=== PATIENT | male | born 1965 ===

== ENCOUNTER 2020-11-12 16:08 | Inpatient (IN) | payer OTHER ==
[~2020-11-12] VITALS: Ht 177.8 cm; Wt 114.0 kg
[2020-11-12] MEDS ORDERED: PLEASE ENTER HEIGHT AND WEIGHT MC SCH (16:30)
[2020-11-12] MEDS ORDERED: SODIUM CHLORIDE FLUSH 10ML SYR IVF ONE (16:30)
[2020-11-12] MEDS ORDERED: PLEASE ENTER ALLERGIES MC SCH (16:30)
[2020-11-12] MEDS ORDERED: ONDANSETRON 2MG/ML, 2ML ONE (16:30)
[2020-11-12] MEDS ORDERED: HYDROmorphone 1 MG/ML, 1ML INJ ONE ×2 (16:30→18:12)
[2020-11-12] MEDS ORDERED: SODIUM CHLORIDE 0.9% 1,000ML IVBOLUS ONE (16:30)
[2020-11-12] MEDS ORDERED: ONDANSETRON 2MG/ML, 2ML IVPush ONE (16:30)
[2020-11-12] MEDS: HYDROmorphone 1 MG/ML, 1ML INJ IVPush PRN ×2 (16:31→18:15)
[2020-11-12 16:33] LABS: BASOPHILS % (AUTO) 1 % (0-1); EOSINOPHILS % (AUTO) 0 % (1-7); LYMPHOCYTES % (AUTO) 19 % (22-44); MEAN CORPUSCULAR HEMOGLOBIN 32.8 pg (27.5-34.5); MEAN CORPUSCULAR HGB CONC 34.6 g/dL (33.2-36.2); MONOCYTES % (AUTO) 8 % (2-9); NEUTROPHILS % (AUTO) 72 % (42-75); PLATELET COUNT 215 x10^3/uL (130-400); RED BLOOD COUNT 4.88 x10^6/uL (4.38-5.82); RED CELL DISTRIBUTION WIDTH 12.9 % (9.4-14.8)
[2020-11-12 16:40] LABS: ALANINE AMINOTRANSFERASE 68 U/L (12-78); ALBUMIN 3.8 g/dL (3.4-5.0); ANION GAP 5 mmol/L (5-15); CALCIUM 8.7 mg/dL (8.5-10.1); CHLORIDE 108 mmol/L (98-107); CREATININE 1.01 mg/dL (0.7-1.3)
[2020-11-12 16:42] LABS: ALKALINE PHOSPHATASE 68 U/L (45-117); TOTAL PROTEIN 7.7 g/dL (6.4-8.2)
[2020-11-12] MEDS ORDERED: OMNIPAQUE 350 MG/ML, 100ML BOTTLE ONE (16:57)
--- NOTE | 2020-11-12 17:42 | NUR ---
DR PERDOMO AT BEDSIDE. TEST RESULTS REVIEWED AND QUESTIONS ANSWERED. PLAN FOR ADMIT FOR OVERNIGHT OBS AND PAIN CONTROL DISCUSSED AND QUESTIONS ANSWERED.
[2020-11-12] MEDS ORDERED: morphine SULFATE 10 MG/ML, 1ML IVPush PRN (18:00)
[2020-11-12] MEDS ORDERED: BISACODYL 10 MG SUPP PR PRN (18:00)
[2020-11-12] MEDS ORDERED: DOCUSATE 100 MG CAPSULE PO PRN (18:00)
[2020-11-12] MEDS ORDERED: POLYETHYLENE GLYCOL 17 GM PACKET PO PRN (18:00)
[2020-11-12] MEDS ORDERED: ACETAMINOPHEN 325 MG TABLET PO PRN (18:00)
[2020-11-12] MEDS ORDERED: ONDANSETRON 2MG/ML, 2ML IVPush PRN (18:00)
--- NOTE | 2020-11-12 18:15 | NUR ---
PT MED NOTED FOR PAIN. INSTRUCTED ON USE OF INCENTIVE SPIROMETER WITH EXCELLENT RTN DEMONSTRATION VOLUME = 2000ML. 02 2L NC PLACED 2/2 MEDICATION EFFECT. SPO2 MAINTAINING AT 97%
[2020-11-12] MEDS: SODIUM CHLORIDE 0.9% 1,000 ML IV SCH (19:03)
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
[2020-11-12 19:31] LABS: MICROSCOPIC NOT IND
--- NOTE | 2020-11-12 19:35 | NUR ---
REPORT TO SOULEYMANE PT TO FLOOR WITH TECH
[2020-11-12] MEDS: HYDROcodone/APAP 5/325 TABLET PO PRN (22:08)
[2020-11-13 01:23] VITALS: BP 168/64
[2020-11-13 05:43] LABS: ALBUMIN 3.1 g/dL (3.4-5.0); ANION GAP 4 mmol/L (5-15); BASOPHILS % (AUTO) 0 % (0-1); CALCIUM 7.8 mg/dL (8.5-10.1); CHLORIDE 110 mmol/L (98-107); EOSINOPHILS % (AUTO) 1 % (1-7); LYMPHOCYTES % (AUTO) 21 % (22-44); MEAN CORPUSCULAR HEMOGLOBIN 33.4 pg (27.5-34.5); MEAN CORPUSCULAR HGB CONC 34.7 g/dL (33.2-36.2); MEAN PLATELET VOLUME 8.3 fL (7.4-10.4); MONOCYTES % (AUTO) 11 % (2-9); NEUTROPHILS % (AUTO) 66 % (42-75); PLATELET COUNT 176 x10^3/uL (130-400); RED BLOOD COUNT 4.28 x10^6/uL (4.38-5.82); RED CELL DISTRIBUTION WIDTH 13.2 % (9.4-14.8)
[2020-11-13 06:05] LABS: ALANINE AMINOTRANSFERASE 50 U/L (12-78); ALKALINE PHOSPHATASE 57 U/L (45-117); CREATININE 0.87 mg/dL (0.7-1.3); TOTAL PROTEIN 6.5 g/dL (6.4-8.2)
[2020-11-13] MEDS: HYDROcodone/APAP 5/325 TABLET PO PRN ×4 (06:44→20:19)
[2020-11-13] MEDS: SODIUM CHLORIDE 0.9% 1,000 ML IV SCH (06:44)
[2020-11-13 08:05] VITALS: BP 133/71
[2020-11-13 13:12] VITALS: BP 124/69
[2020-11-13 19:21] VITALS: BP 136/78
[2020-11-14 01:11] VITALS: BP 129/80
[2020-11-14 05:32] LABS: ANION GAP 6 mmol/L (5-15); BASOPHILS % (AUTO) 0 % (0-1); CALCIUM 7.9 mg/dL (8.5-10.1); CHLORIDE 107 mmol/L (98-107); CREATININE 0.86 mg/dL (0.7-1.3); EOSINOPHILS % (AUTO) 2 % (1-7); LYMPHOCYTES % (AUTO) 26 % (22-44); MEAN CORPUSCULAR HEMOGLOBIN 33.2 pg (27.5-34.5); MEAN CORPUSCULAR HGB CONC 34.7 g/dL (33.2-36.2); MEAN PLATELET VOLUME 8.4 fL (7.4-10.4); MONOCYTES % (AUTO) 10 % (2-9); NEUTROPHILS % (AUTO) 62 % (42-75); PLATELET COUNT 170 x10^3/uL (130-400); RED BLOOD COUNT 4.17 x10^6/uL (4.38-5.82); RED CELL DISTRIBUTION WIDTH 12.9 % (9.4-14.8)
[2020-11-14] MEDS: HYDROcodone/APAP 5/325 TABLET PO PRN ×4 (06:24→18:31)
[2020-11-14 07:35] VITALS: BP 126/75
[2020-11-14] MEDS ORDERED: TAMSULOSIN 0.4 MG CAP.ER.24H PO SCH (09:00)
[2020-11-14 12:05] VITALS: BP 123/77
[2020-11-14] MEDS ORDERED: DOCU-131 PO (14:10)
[2020-11-14] MEDS ORDERED: HYDR-2214 PO (14:10)
[2020-11-14] MEDS ORDERED: METH-640 PO (14:24)
[2020-11-14] MEDS ORDERED: METHOCARBAMOL 750 MG TABLET PO PRN (14:30)
== END 2020-11-14 19:09 | disposition home health service (06) | DRG 552 ==
LOC: ED 16:38 → 4NE 19:50 → ED 22:03 → 4NE 22:04 → OBSVTOIN 22:04
PROVIDERS: ADMIT Internal Medicine; ATTEND Hospitalist
DX: S32.019A Unspecified fracture of first lumbar vertebra, initial encounter for closed fracture (principal); S22.31XA Fracture of one rib, right side, initial encounter for closed fracture; S32.9XXA Fracture of unspecified parts of lumbosacral spine and pelvis, initial encounter for closed fracture; M48.02 Spinal stenosis, cervical region; Y93.52 Activity, horseback riding; F17.210 Nicotine dependence, cigarettes, uncomplicated; V80.010A Animal-rider injured by fall from or being thrown from horse in noncollision accident, initial encounter; Z79.899 Other long term (current) drug therapy; X58.XXXA Exposure to other specified factors, initial encounter; Y93.89 Activity, other specified; Y92.89 Other specified places as the place of occurrence of the external cause; Y99.8 Other external cause status
CPT/HCPCS: 36415; 71045; 71260; 72125; 74177; 80048; 80053; 81003; 83036; 83735; 84100; 84443; 85025; 86850; 86900; 93005; 96374; 96375; 96376; J1170; J2405; Q9967; G0378; J7030